=== PATIENT | male | born 1975 | race Native Hawaiian/Other Pacific Islander ===

== ENCOUNTER 2021-06-23 10:19 | Outpatient (CLI) | payer OTHER | END 2021-06-23 19:36 | disposition home or self-care (01) | LOC: RESP 10:19 | PROVIDERS: ATTEND Emergency Medicine | DX: G56.01 Carpal tunnel syndrome, right upper limb (principal); G56.21 Lesion of ulnar nerve, right upper limb; M25.511 Pain in right shoulder | CPT/HCPCS: 95885; 95910 ==